=== PATIENT | female | born 1990 | race Caucasian/White ===

== ENCOUNTER 2017-10-15 15:09 | Emergency (ER) | payer BC, SELFPAY ==
[2017-10-15 15:33] LABS: #Basophils 0.1 thou/uL (0.0-0.2); #Eosinphils 0.1 thou/uL (0.0-0.7); #Lymphocytes 2.4 thou/uL (1.20-3.40); #Monocytes 0.5 thou/uL (0.11-0.59); #Neutrophils 7.2 thou/uL (1.40-6.50); %Basophils 0.6 % (0.0-1.0); %Eosinophils 1.4 % (0.0-10.0); %Lymphocytes 23.2 % (21.0-51.0); %Neutrophils 69.7 % (42.0-75.0); Hemoglobin 14.5 g/dL (12.0-16.0); Mean Corpuscular HGB CONC 33.9 g/dL (32.0-36.0); Mean Corpuscular Hemoglobin 30.2 pg (27.0-31.0); Mean Corpuscular Volume 89.3 fl (81.0-99.0); Mean Platelet Volume 8.2 fL (7.4-10.4); Platelet Count 317 thou/uL (130-400); RBC Distribution Width 12.4 % (11.5-14.5); Red Blood Cell (RBC) Count 4.78 mill/uL (4.20-5.40); White Blood Cell (WBC) Count 10.3 thou/uL (4.8-10.8)
[2017-10-15 15:49] LABS: BHCG - Serum Negative (NEGATIVE); Pregs Control Background? CLEAR/WHITE (CLR/WHITE); Pregs Control Bar Appear? YES (CONTROL BAR)
[2017-10-15 15:53] LABS: Anion Gap 13 mmol/L (10-20); BUN (Urea Nitrogen) 17 mg/dL (7.0-18.7); Calc. Creatinine Clearance 0 mL/min (70-130); Calcium 9.9 mg/dL (7.8-10.44); Carbon Dioxide 27 mmol/L (22-29); Chloride 105 mmol/L (98-107); Estimated GFR-MDRD 71; Glucose 116 mg/dL (70-105); Potassium 3.7 mmol/L (3.5-5.1); Sodium 141 mmol/L (136-145)
[2017-10-15 15:54] LABS: Prothrombin Time 13.7 SEC (12.0-14.7)
--- NOTE | 2017-10-15 20:31 | CT ---
CT OF THE BRAIN WITHOUT CONTRAST: Date: 10-15-17 FINDINGS: Noncontrast CT shows some scalp hematoma over the high left posterior parietal region. The underlying bone appears intact. There are no skull fractures. The ventricles are normal in size with no shift. No intracranial bleeding or extraaxial hematoma was seen. There is no mass or sign of stroke. The sphenoid sinus and mastoid air cells are clear. IMPRESSION: No acute intracranial findings. POS: HOME
--- NOTE | 2017-10-15 20:33 | RAD ---
LEFT HIP TWO VIEWS: Date: 10-15-17 FINDINGS: No fracture, dislocation, or acute traumatic change was seen. Joint space appears normal. Adjacent pu bic ring appears intact. IMPRESSION: No acute finding. POS: HOME
--- NOTE | 2017-10-15 20:34 | RAD ---
CHEST TWO VIEWS: Date: 10-15-17 FINDINGS: The heart is normal in size. There is no mediastinal widening or shift. The trachea is midline. The l ungs are fully inflated and clear. There is no sign of pleural effusion or pneumothorax. No gross fra ctures were identified. IMPRESSION: No acute findings. POS: HOME
== END 2017-10-15 16:24 | disposition home or self-care (01) ==
LOC: BURERS 15:09
DX: S00.03XA Contusion of scalp, initial encounter (principal); S30.0XXA Contusion of lower back and pelvis, initial encounter; S80.12XA Contusion of left lower leg, initial encounter; V80.010A Animal-rider injured by fall from or being thrown from horse in noncollision accident, initial encounter
CPT/HCPCS: 70450; 71046; 80048; 84703; 85025; 85610; 85730

== ENCOUNTER 2022-10-03 08:21 | Outpatient (CLI) | payer BC | END 2022-10-03 08:22 | disposition home or self-care (01) | LOC: BURRAD 08:21 | PROVIDERS: ATTEND Family Medicine | DX: M23.91 Unspecified internal derangement of right knee (principal) ==

== ENCOUNTER 2023-10-17 18:25 | Emergency (ER) | payer OTHER, SELFPAY ==
[2023-10-17] MEDS ORDERED: Ketorolac Tromethamine 60 MG/2 ML VIAL ONE (18:53)
[2023-10-17] MEDS ORDERED: Acetaminophen/Codeine 30-300mg Tablet ONE (18:54)
== END 2023-10-17 19:06 | disposition home or self-care (01) ==
LOC: BURERS 18:25
DX: S29.9XXA Unspecified injury of thorax, initial encounter (principal); R51.9 Headache, unspecified; V89.2XXA Person injured in unspecified motor-vehicle accident, traffic, initial encounter
CPT/HCPCS: 96372; 99284; J1885